=== PATIENT | male | born 1935 ===

== ENCOUNTER 2018-06-22 07:59 | Inpatient (IN) | payer MEDICARE, MEDICAID ==
[2018-06-22 08:49] VITALS: BMI 20.9
[2018-06-22] MEDS ORDERED: Bacitracin Ointment 30 GM TUBE ONE (08:58)
[2018-06-22] MEDS ORDERED: Sodium Chloride 0.9% 20 ML IV ONE (08:58)
[2018-06-22] MEDS ORDERED: Thrombin Topical 5,000 Int Units Spray Kit ONE (08:59)
[2018-06-22] MEDS ORDERED: GELATIN SPONGE,ABSORB/PORCINE 1 EACH SPONGE TP ONE (08:59)
[2018-06-22] MEDS ORDERED: Lactated Ringer's 1,000 ML IV ONE ×2 (10:10→12:00)
[2018-06-22 10:15] LABS: BASO % 0.5 % (0.0-2.0); EOS # 0.3 K/uL (0.0-0.7); EOS % 4.9 % (0.0-4.0); HEMOGLOBIN 11.9 g/dL (12.0-18.0); LYMPH # 2.6 K/uL (1.0-4.3); LYMPH % 48.6 % (20.0-40.0); MEAN CELL VOLUME 95.3 fl (80.0-94.0); MEAN CORPUSCULAR HEMOGLOBIN 31.5 pg (27.0-31.0); MEAN CORPUSCULAR HGB CONC 33.1 g/dL (33.0-37.0); MONO # 0.5 K/uL (0.0-0.8); MONO % 10.1 % (0.0-10.0); NEUT # 1.9 K/uL (1.8-7.0); NEUT % 35.9 % (50.0-75.0); NRBC % 0.2 % (0.0-0.0); RBC 3.79 Mil/uL (4.40-5.90); RED CELL DISTRIBUTION WIDTH 14.4 % (11.5-14.5); WHITE BLOOD COUNT 5.3 K/uL (4.8-10.8)
[2018-06-22] MEDS ORDERED: Propofol 10 mg/ml Inj (20 ML) ONE (10:15)
[2018-06-22] MEDS ORDERED: Rocuronium 10 mg/ml (5 ml) ONE (10:15)
[2018-06-22] MEDS ORDERED: Etomidate 20 mg/10ml Inj IV ONE (10:36)
[2018-06-22] MEDS ORDERED: Tranexamic Acid 1,000 MG in Sodium Chloride 0.9% 100 ML IVPB ONE (10:45)
[2018-06-22] MEDS: Bupivacaine HCl 0.5% PF (30 ml) Inj ONE ×2 (11:34→12:20)
[2018-06-22] MEDS: Morphine 1 mg/ml preservative-free Inj(Duramorph) ONE ×2 (11:34→12:20)
[2018-06-22] MEDS: EPINEPHrine 1 mg/ml (1:1000) Inj ONE ×2 (11:35→12:20)
[2018-06-22] MEDS ORDERED: Sevoflurane - Inhalation Anesthetic Liq (250 ml) ONE (11:57)
[2018-06-22] MEDS ORDERED: Neostigmine 1:1000 (1 mg/ml) Inj ONE (12:55)
[2018-06-22] MEDS ORDERED: HYDROmorphone 0.5 mg/0.5 ml ISec IVP PRN (13:29)
--- NOTE | 2018-06-22 14:14 | PCM.SURG1 ---
Surgeon's Initial Post Op Note - Surgeon's Notes Surgeon: Nader Marie MD Front Of House Manager: Julia Silver PA-C; DARIN Hearn Type of Anesthesia: General Endo Pre-Operative Diagnosis: left knee advanced osteoarthritis Operative Findings: see op report Post-Operative Diagnosis: same as pre-op dx Operation Performed: L TKR Specimen/Specimens Removed: left knee bone and soft tissue Estimated Blood Loss: EBL {In ML}: 25 Date of Surgery/Procedure: 06/22/18 Time of Surgery/Procedure: 11:30
--- NOTE | 2018-06-22 14:59 | CP.PCM.HP ---
History of Present Illness - History of Present Illness History of Present Illness: HPI: 83 YO male with PMHx of HIV, primary pulmonary HTN is admitted after L TKR. Pt is seen and examined after procedure. Hemodynamically stable, lethargic and sleepy. Sates that he just had knee surgery. Denies chest pain, dyspnea, nausea. VS: afebrile, HR 58, RR 18, BP 119/72, O2 100 PMD: Dr Zhang Surgeon: Dr. 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 Present on Admission - Present on Admission Any Indicators Present on Admission: No Review of Systems - Constitutional Constitutional: absent: Fever - Cardiovascular Cardiovascular: absent: Chest Pain, Palpitations - Respiratory Respiratory: absent: Dyspnea Past Patient History - Past Medical History & Family History Past Medical History?: Yes - Past Social History Smoking Status: Never Smoked Alcohol: None Drugs: Denies - CARDIAC Hx Cardiac Disorders: Yes Hx Angina: No Hx Cardia Arrhythmia: No Hx Circulatory Problems: No Hx Congestive Heart Failure: No Hx Heart Attack: No Hx Heart Murmur: No Hx Heart Transplant: No Hx Hypercholesterolemia: No Hx Hypertension: Yes Hx Hypotension: No Hx Internal Defibrillator: No Hx Mitral Valve Prolapse: No Hx Pacemaker: No Hx Peripheral Edema: No Hx Peripheral Vascular Disease: No - PULMONARY Hx Respiratory Disorders: Yes Hx Asthma: Yes Hx Emphysema: Yes Hx Pneumonia: Yes Other/Comment: pulmonary fibrosis - NEUROLOGICAL Hx Neurological Disorder: No - HEENT Hx HEENT Problems: No Hx Cataracts: Yes - RENAL Hx Chronic Kidney Disease: No - ENDOCRINE/METABOLIC Hx Endocrine Disorders: No - HEMATOLOGICAL/ONCOLOGICAL Hx Blood Disorders: Yes Hx AIDS: No Hx Human Immunodeficiency Virus (HIV): Yes - INTEGUMENTARY Hx Dermatological Problems: No - MUSCULOSKELETAL/RHEUMATOLOGICAL Hx Musculoskeletal Disorders: No Hx Arthritis: Yes Hx Back Pain: Yes Hx Degenerative Joint Disease: No Hx Falls: No Hx Fractures: No Hx Gout: No Hx Herniated Disk: No Hx Myasthenia Gravis: No Hx Osteoarthritis: No Hx Osteomyelitis: No Hx Osteoporosis: No Hx Rhabdomyolysis: No Hx Rheumatoid Arthritis: No Hx Spinal Stenosis: Yes - GASTROINTESTINAL Hx Gastrointestinal Disorders: Yes Hx Bowel Surgery: Yes (Hernia) Hx Colostomy: Yes - GENITOURINARY/GYNECOLOGICAL Hx Genitourinary Disorders: Yes Hx Prostate Problems: Yes - PSYCHIATRIC Hx Psychophysiologic Disorder: No Hx Substance Use: No - SURGICAL HISTORY Hx Surgeries: Yes Hx Cataract Extraction: Yes Hx Eye Surgery: Yes Hx Herniorrhaphy: Yes Other/Comment: UNKNOWN ABDOMINAL SURGERY - ANESTHESIA Hx Anesthesia: Yes Hx Anesthesia Reactions: No Hx Malignant Hyperthermia: No Meds Allergies/Adverse Reactions: Allergies Allergy/AdvReac Type Severity Reaction Status Date / Time No Known Allergies Allergy Verified 12/13/16 23:03 Physical Exam - Constitutional Appears: No Acute Distress - ENT Exam ENT Exam: Mucous Membranes Moist - Respiratory Exam Respiratory Exam: Clear to Auscultation Bilateral. absent: Wheezes - Cardiovascular Exam Cardiovascular Exam: REGULAR RHYTHM, +S1, +S2 - Extremities Exam Additional comments: L knee wound dressing - Neurological Exam Additional comments: Lethargic, sleepy Results - Vital Signs Recent Vital Signs: Last Vital Signs Temp 95.7 F L 06/22/18 14:20 Pulse 58 L 06/22/18 14:35 Resp 17 06/22/18 14:35 BP 125/58 L 06/22/18 14:35 Pulse Ox 100 06/22/18 14:35 - Labs Result Diagrams: 06/22/18 09:32 Labs: Laboratory Results - last 24 hr 06/22/18 06/22/18 06/22/18 09:32 09:32 11:28 WBC 5.3 D RBC 3.79 L Hgb 11.9 L Hct 36.1 MCV 95.3 H MCH 31.5 H MCHC 33.1 RDW 14.4 Plt Count 186 MPV 8.0 Neut % (Auto) 35.9 L Lymph % (Auto) 48.6 H [place] % (Auto) 10.1 H Eos % (Auto) 4.9 H Baso % (Auto) 0.5 Neut # (Auto) 1.9 Lymph # (Auto) 2.6 [place] # (Auto) 0.5 Eos # (Auto) 0.3 Baso # (Auto) 0.0 Blood Type A POSITIVE Blood Type Confirm A POSITIVE Antibody Screen Negative BBK History Checked No verified bt Assessment & Plan (1) HIV (human immunodeficiency virus infection) Status: Chronic (2) Osteoarthritis Status: Chronic (3) Total knee replacement status Status: Acute (4) Pulmonary hypertension Status: Chronic - Assessment and Plan (Free Text) Assessment: Assessment/Plan: 83 YO male with PMHx of HIV, primary pulmonary HTN is admitted after L TKR. -s/p L TKR, POD 0 -plan as ordered -ortho on board -pain management -bowel regimen -cont abx per ortho -VS stable -labs reviewed; chronic anemia -AM labs -PT
[2018-06-22] MEDS ORDERED: Patient's Own Med (Albuterol/Ipratropium [Combivent Respimat] 2 PUFF) IH SCH (17:00)
--- NOTE | 2018-06-22 18:28 | RAD ---
Date of service: 06/22/2018 PROCEDURE: Left Knee Radiographs. HISTORY: Pain. COMPARISON: Left knee radiographs 02/24/2018. FINDINGS: BONES: Patient status post left total knee replacement with distal femoral and proximal tibial prosthetic components in good apparent position. No acute fracture, subluxation or dislocation identified. Surgical drain identified in situ anteriorly at the superior knee soft tissues with skin dotty in place anteriorly as well. JOINTS: As above. JOINT EFFUSION: Postop change identified in the suprapatellar bursa as well as superficial and deep soft tissues anterior and lateral to the joint with minimal similar changes seen medially. OTHER FINDINGS: None. IMPRESSION: Status post left total knee replacement with postop changes as discussed above. No fracture subluxation or dislocation identified.
[2018-06-22] MEDS ORDERED: ceFAZolin 1 GM in Sodium Chloride 0.9% 100 ML IVPB ONE (18:30)
[2018-06-22] MEDS: Fluticasone-Salmeterol 250-50mcg Diskus IH SCH (21:15)
[2018-06-22] MEDS: oxyCODONE 10 mg ER Tab (oxyCONTIN) PO SCH (21:15)
[2018-06-22] MEDS: oxyCODONE 5 mg Immediate Release Tab PO PRN (23:39)
--- NOTE | 2018-06-23 00:31 | OP ---
Copied To: Nader Marie MD Attending MD: Nader Marie MD PROCEDURE DATE: 06/22/2018 ATTENDING PHYSICIAN: Nader Marie M.D. UI DEVELOPER DESIGNER: Julia Silver PA-C. PREOPERATIVE DIAGNOSIS: Left knee osteoarthritis. POSTOPERATIVE DIAGNOSIS: Left knee osteoarthritis. PROCEDURE: Left total knee replacement. IMPLANTS SIZE: [employer] size 5 tibial baseplate, size 4 femur, 11 mm polyethylene insert, 35 mm patella. ANESTHESIA TYPE: General. ESTIMATED BLOOD LOSS: 30 mL. SPECIMENS: None. COMPLICATIONS: None. HISTORY: The patient with prolonged history of left knee pain progressively getting worse despite extensive conservative management, which included activity modification, injections, anti-inflammatory modification and physical therapy. X-rays had revealed advanced arthritis. Patient was indicated for total knee replacement due to continued pain and limited mobility. I had a detailed discussion with the patient in the office explaining the nature of the surgery, alternatives of surgery, risks and benefits, rehabilitation protocol and surgical markings. Risks of surgery include but not limited to continued pain, lack of motion, infection, vascular injury, DVT / PE, nerve injury including peroneal nerve dysfunction, reflex sympathetic dystrophy, compartment syndrome, unforeseen medical and/or anesthesia complications, limb loss, and even . The patient expressed an understanding of the risks and possible benefits of the procedure, and is also aware of the alternatives to surgery. PROCEDURE: On the day of the surgery, the patient was admitted to pre-operative holding area. A laterality sheet was completed confirming the correct operative site. The correct surgical knee was marked in the holding area and informed consent was signed from the patient. Once again, I reviewed the risks and benefits of the surgery with the patient in detail. These risks include but are not limited to continued pain, lack of motion, infection, vascular injury, DVT / PE, nerve injury including peroneal nerve dysfunction, reflex sympathetic dystrophy, symptomatic hardware, need for further procedure and surgeries, instability, iatrogenic fractures, compartment syndrome, unforeseen medical and/or anesthesia complications, limb loss, and even . The patient expressed an understanding of the risks and possible benefits of the procedure, also aware of the alternatives to surgery and signed the informed consent. The patient was transported to the operating room and placed in the supine position, general anesthesia was obtained. Exam under anesthesia revealed flexion contracture of 20 degrees, flexion to 100, and also 15 degrees of valgus deformity. A padded tourniquet was applied to patient's operative thigh and appropriate prophylactic antibiotics were given. The operative leg was draped and prepped in standard sterile manner. Timeout was completed, confirming patient's left knee to be the correct operative site. Using an Esmarch, the extremity was exsanguinated and tourniquet was inflated to 350 mmHg. The surgical incision markings were made using patella border, tibial tubercle, patella and quadriceps tendon. Using a 10 blade, a midline incision was made. Skin dissection was taken until the prepatellar fascia was identified and the corners of the patellar tendon were marked for proper closure at the end of the procedure. Using a fresh 10 blade, a medial parapatellar arthrotomy was performed. The knee was exposed in the standard manner. The deep MCL was elevated for exposure, medial and lateral menisci were removed, ACL and PCL were also transected. The tibia was subluxed anteriorly. Planned tibial cut was made with power saw, using extra-medullary guide, perpendicular to mechanical axis of the tibia. After the cut was made, the alignment was also checked and was found to be appropriate. Tibial cut surface was measured with trial base plate and it was noted that tibial baseplate size 5 was provide sufficient coverage without overhang. Tibial component was externally rotated and marked. Next, the knee was placed into 90 degrees of flexion. A drill hole was made within the femoral notch anterior to PCL insertion for placement of intramedullary femoral osman. Intramedullary femoral osman was inserted within the femoral canal and planned distal femoral cut was made. After the cut, knee was brought into full extension. Spacer blocks were used to check the extension balancing both in full extension and 30 degrees of flexion. It was found that an 11 mm trial spacer block allowed full extension with symmetric varus and valgus balancing. Next we proceed with Patella resurfacing. Patella width was found to be 29 mm. Using the free-hand technique, the arthritic patella surface was resected. Patella was sized using the guide and it was noted that 35 mm patella dome button would be appropriate for the patient. Next the size of femoral component was determined using the posterior referencing guide. It was noted that a size 4 femur would be appropriate for this patient without causing any significant notching. A 4 x 1 cutting block was placed and flexion gap balancing was checked. The flexion gap was found to be symmetric to the extension gap. Anterior and posterior condyle, anterior and posterior chamfer cuts were made. Next, appropriate size box cut for femoral component was prepared using the guide. The femoral trial component was impacted onto the distal femur. Appropriate size tibial trial component was also placed on the cut surface of the tibia. Using the drill and punch, keel for tibial implant was prepared. Trial tibial tray was secured onto the tibia using pins. Different size trial polyethylene inserts were secured on to the trial tibial tray to critically assess the following parameters: Full range of motion, extension and flexion gap balancing, mid-flexion stability, anterior and posterior drawer, and patellar tracking. All parameter were found to be satisfactory with an 11 mm insert. All the trial components were removed. Implants were opened on the back table. Cement was mixed and we proceed with cement fixation of the implants. Tibial tray, femoral component and patellar dome button were secured with cement. Polyethylene insert was secured onto the tibial tray using locking mechanism. The knee was reduced and brought into full extension. Cement was allowed to harden until final component fixation. Knee was taken through the final range of motion for stability testing, and found to be satisfactory. A 60 cc of custom cocktail mixture was injected into posterior capsule, MCL, LCL, quadriceps tendon, and patellar tendon. Wound was copiously irrigated with sterile antibiotic solution using pulse lavage. Arthrotomy was closed using heavy suture and wound was closed in standard manner. Patient was extubated, transferred to stretcher and taken to the recovery room. Post-operative instructions were provided, physical therapy consult was requested along with DVT prophylaxis and appropriate pain medications. During this procedure, I was assisted by Dr. Julia Silver, who assisted in positioning the patient on the operating room table as well as transferring the patient from the operating room table to the recovery room stretcher. In addition, Dr. Julia Silver assisted me during the actual operative procedure by positioning, protecting critical neurovascular structures, exposure of the joint, and proper positioning of the implants. The presence of Dr. Julia Silver as my operative assistant terminal manager was medically necessary to ensure the utmost safety of the patient in the pre, intra-, and post-operative periods. Nader Marie MD
[2018-06-23] MEDS ORDERED: ceFAZolin 1 GM in Sodium Chloride 0.9% 100 ML IVPB ONE (02:30)
[2018-06-23 06:29] LABS: BASO % 0.3 % (0.0-2.0); EOS # 0.3 K/uL (0.0-0.7); EOS % 3.9 % (0.0-4.0); HEMOGLOBIN 9.8 g/dL (12.0-18.0); LYMPH # 1.6 K/uL (1.0-4.3); LYMPH % 22.1 % (20.0-40.0); MEAN CELL VOLUME 95.5 fl (80.0-94.0); MEAN CORPUSCULAR HEMOGLOBIN 31.9 pg (27.0-31.0); MEAN CORPUSCULAR HGB CONC 33.4 g/dL (33.0-37.0); MEAN PLATELET VOLUME 8.4 fl (7.2-11.7); MONO # 0.7 K/uL (0.0-0.8); MONO % 9.1 % (0.0-10.0); NEUT # 4.7 K/uL (1.8-7.0); NEUT % 64.6 % (50.0-75.0); RBC 3.06 Mil/uL (4.40-5.90); RED CELL DISTRIBUTION WIDTH 14.2 % (11.5-14.5); WHITE BLOOD COUNT 7.2 K/uL (4.8-10.8)
[2018-06-23 07:00] LABS: BLOOD UREA NITROGEN 16 mg/dl (9-20); CALCIUM 8.3 mg/dL (8.4-10.2); GFR AFRICAN-AMERICAN > 60; GFR NON-AFRICAN AMERICAN > 60
[2018-06-23] MEDS: oxyCODONE 5 mg Immediate Release Tab PO PRN ×2 (07:47→12:53)
[2018-06-23] MEDS: oxyCODONE 10 mg ER Tab (oxyCONTIN) PO SCH ×2 (08:38→21:24)
[2018-06-23] MEDS: Fluticasone-Salmeterol 250-50mcg Diskus IH SCH ×2 (08:52→21:18)
--- NOTE | 2018-06-23 08:57 | CP.PCM.PN ---
Subjective - Date & Time of Evaluation Date of Evaluation: 06/23/18 Time of Evaluation: 08:15 - Subjective Subjective: 83 yo M s/p LTKR POD#1 Pt seen and examined at bedside, comfortable in bed Pt c/o left knee pain and LLE discomfort Pt denies any SOB, chest pain, N/V/D, numbness/tingling LLE Objective - Vital Signs/Intake and Output Vital Signs (last 24 hours): Temp Pulse Resp BP Pulse Ox 98.5 F 78 19 95/61 L 93 L 06/23/18 07:46 06/23/18 07:46 06/23/18 07:46 06/23/18 07:46 06/23/18 07:46 - Medications Medications: Current Medications Acetaminophen (Tylenol 325mg Tab) 325 mg PO Q4 PRN PRN Reason: pain1-3 Celecoxib (Celebrex) 100 mg PO Q12 [facility] Last Admin: 06/23/18 08:52 Dose: 100 mg Citalopram Hydrobromide (Celexa) 20 mg PO DAILY [facility] Docusate Sodium (Colace) 100 mg PO TID [facility] Last Admin: 06/23/18 08:52 Dose: 100 mg Enoxaparin Sodium (Lovenox) 40 mg SC DAILY [facility] PRN Reason: Protocol Home Med (Albuterol/Ipratropium [Combivent Respimat]) 2 puff IH BID [facility] Home Med (Patient's Own Medication) 50 unit PO DAILY [facility] Ketorolac Tromethamine (Toradol) 15 mg IM Q8 [facility] Stop: 06/24/18 19:00 Last Admin: 06/23/18 08:48 Dose: 15 mg Montelukast Sodium (Singulair) 10 mg PO DAILY [facility] Ondansetron HCl (Zofran Inj) 4 mg IVP Q6 PRN PRN Reason: Nausea/Vomiting Last Admin: 06/22/18 17:59 Dose: 4 mg Oxycodone HCl (Oxycontin Extended Release Tab) 10 mg PO Q12 [facility] Stop: 07/06/18 21:01 Last Admin: 06/23/18 08:38 Dose: 10 mg Oxycodone HCl (Oxycodone Immediate Release Tab) 5 mg PO Q4 PRN PRN Reason: pain4-7 Last Admin: 06/23/18 07:47 Dose: 5 mg Fluticasone/Salmeterol (Advair Diskus 250/50) 1 puff IH Q12 [facility] Last Admin: 06/23/18 08:52 Dose: 1 puff - Labs Labs: 06/23/18 05:25 06/23/18 05:25 - Constitutional Appears: Well, No Acute Distress - Respiratory Exam Respiratory Exam: Clear to Ausculation Bilateral, NORMAL BREATHING PATTERN - Cardiovascular Exam Cardiovascular Exam: REGULAR RHYTHM, RRR - Back Exam Additional comments: LLE: Knee dressing C/D/I, Picco dressing in place and functioning well Calves soft and nontender b/l N/V intact distally Normal ROM left ankle Distal pulses wnl No foot drop Assessment and Plan - Assessment and Plan (Free Text) Assessment: 83 yo M s/p LTKR POD#1 Plan: Pain control Incentive Spirometer DVT ppx- start lovenox today, SCD b/l LE PT/OT WBAT LLE F/U labs Discussed with Dr. Marie
[2018-06-23] MEDS: Enoxaparin 40 mg Syringe SC SCH (12:55)
--- NOTE | 2018-06-23 17:14 | CP.PCM.PN ---
Subjective - Date & Time of Evaluation Date of Evaluation: 06/23/18 Time of Evaluation: 10:00 - Subjective Subjective: Pt seen and evaluate at bedside with Dr. Isbell this am. S/p Sitting comfortably in chair, LLE in immobilizer. No acute events overnight, no chest pain, dyspnea. Objective - Vital Signs/Intake and Output Vital Signs (last 24 hours): Temp Pulse Resp BP Pulse Ox 98.2 F 56 L 18 93/61 L 95 06/23/18 16:09 06/23/18 16:09 06/23/18 16:09 06/23/18 16:09 06/23/18 16:09 - Medications Medications: Current Medications Acetaminophen (Tylenol 325mg Tab) 325 mg PO Q4 PRN PRN Reason: pain1-3 Celecoxib (Celebrex) 100 mg PO Q12 [facility] Last Admin: 06/23/18 08:52 Dose: 100 mg Citalopram Hydrobromide (Celexa) 20 mg PO DAILY [facility] Last Admin: 06/23/18 08:56 Dose: 20 mg Docusate Sodium (Colace) 100 mg PO TID [facility] Last Admin: 06/23/18 16:30 Dose: 100 mg Enoxaparin Sodium (Lovenox) 40 mg SC DAILY [facility] PRN Reason: Protocol Last Admin: 06/23/18 12:55 Dose: 40 mg Home Med (Albuterol/Ipratropium [Combivent Respimat]) 2 puff IH BID [facility] Home Med (Patient's Own Medication) 50 unit PO DAILY [facility] Ketorolac Tromethamine (Toradol) 15 mg IVP Q8 [facility] Stop: 06/24/18 19:00 Last Admin: 06/23/18 16:31 Dose: 15 mg Montelukast Sodium (Singulair) 10 mg PO DAILY [facility] Last Admin: 06/23/18 12:54 Dose: 10 mg Ondansetron HCl (Zofran Inj) 4 mg IVP Q6 PRN PRN Reason: Nausea/Vomiting Last Admin: 06/22/18 17:59 Dose: 4 mg Oxycodone HCl (Oxycontin Extended Release Tab) 10 mg PO Q12 [facility] Stop: 07/06/18 21:01 Last Admin: 06/23/18 08:38 Dose: 10 mg Oxycodone HCl (Oxycodone Immediate Release Tab) 5 mg PO Q4 PRN PRN Reason: pain4-7 Last Admin: 06/23/18 12:53 Dose: 5 mg Fluticasone/Salmeterol (Advair Diskus 250/50) 1 puff IH Q12 [facility] Last Admin: 06/23/18 08:52 Dose: 1 puff - Labs Labs: 06/23/18 05:25 06/23/18 05:25 - Constitutional Appears: No Acute Distress - Eye Exam Eye Exam: Normal appearance - ENT Exam ENT Exam: Mucous Membranes Moist - Respiratory Exam Respiratory Exam: Clear to Ausculation Bilateral, NORMAL BREATHING PATTERN - Cardiovascular Exam Cardiovascular Exam: REGULAR RHYTHM, +S1, +S2 - GI/Abdominal Exam GI & Abdominal Exam: Soft. absent: Tenderness - Extremities Exam Additional comments: LLE in bandage and immobilizer - Neurological Exam Neurological Exam: Alert, Awake, Oriented x3 - Skin Skin Exam: Dry, Normal Color, Warm Assessment and Plan (1) Total knee replacement status Status: Acute (2) HIV (human immunodeficiency virus infection) Status: Chronic - Assessment and Plan (Free Text) Plan: - s/p L TKR, POD 1 - ortho on board; primary management of TKR as per ortho - pain meds, abx, DVT prophylaxis - c/w HAART as home meds - PT/OT - rest of plan as ordered
[2018-06-23 23:58] VITALS: RESP 20; O2SAT 94
[2018-06-24 06:49] LABS: BASO % 0.1 % (0.0-2.0); EOS # 0.3 K/uL (0.0-0.7); EOS % 3.5 % (0.0-4.0); HEMOGLOBIN 9.2 g/dL (12.0-18.0); LYMPH # 1.9 K/uL (1.0-4.3); LYMPH % 24.5 % (20.0-40.0); MEAN CELL VOLUME 94.9 fl (80.0-94.0); MEAN CORPUSCULAR HGB CONC 33.7 g/dL (33.0-37.0); MEAN PLATELET VOLUME 8.1 fl (7.2-11.7); MONO % 12.4 % (0.0-10.0); NEUT # 4.6 K/uL (1.8-7.0); NEUT % 59.5 % (50.0-75.0); NRBC % 0.1 % (0.0-0.0); RBC 2.89 Mil/uL (4.40-5.90); RED CELL DISTRIBUTION WIDTH 14.4 % (11.5-14.5); WHITE BLOOD COUNT 7.7 K/uL (4.8-10.8)
[2018-06-24 07:23] LABS: BLOOD UREA NITROGEN 24 mg/dl (9-20); CALCIUM 8.3 mg/dL (8.4-10.2); GFR AFRICAN-AMERICAN > 60; GFR NON-AFRICAN AMERICAN > 60
[2018-06-24 08:14] VITALS: BP 109/62; TEMP 97.9
[2018-06-24] MEDS: Fluticasone-Salmeterol 250-50mcg Diskus IH SCH (08:21)
[2018-06-24] MEDS: Enoxaparin 40 mg Syringe SC SCH (08:23)
[2018-06-24] MEDS: oxyCODONE 10 mg ER Tab (oxyCONTIN) PO SCH (08:27)
[2018-06-24] MEDS ORDERED: BIKTARVY PO SCH (09:00)
--- NOTE | 2018-06-24 09:16 | CP.PCM.PN ---
Subjective - Date & Time of Evaluation Date of Evaluation: 06/24/18 Time of Evaluation: 09:13 - Subjective Subjective: Patient seen and examined at bedside. Pain moderate today but controlled with medications. No new complaints. Objective - Vital Signs/Intake and Output Vital Signs (last 24 hours): Temp Pulse Resp BP Pulse Ox 97.9 F 78 20 109/62 94 L 06/24/18 08:13 06/24/18 08:13 06/24/18 08:13 06/24/18 08:13 06/24/18 08:13 - Medications Medications: Current Medications Acetaminophen (Tylenol 325mg Tab) 325 mg PO Q4 PRN PRN Reason: pain1-3 Celecoxib (Celebrex) 100 mg PO Q12 [facility] Last Admin: 06/24/18 08:22 Dose: 100 mg Citalopram Hydrobromide (Celexa) 20 mg PO DAILY [facility] Last Admin: 06/24/18 08:22 Dose: 20 mg Docusate Sodium (Colace) 100 mg PO TID [facility] Last Admin: 06/24/18 08:22 Dose: 100 mg Enoxaparin Sodium (Lovenox) 40 mg SC DAILY [facility] PRN Reason: Protocol Last Admin: 06/24/18 08:23 Dose: 40 mg Home Med (Albuterol/Ipratropium [Combivent Respimat]) 2 puff IH BID [facility] Home Med (Patient's Own Medication) 50 unit PO DAILY [facility] Ketorolac Tromethamine (Toradol) 15 mg IVP Q8 [facility] Stop: 06/24/18 19:00 Last Admin: 06/24/18 08:24 Dose: 15 mg Montelukast Sodium (Singulair) 10 mg PO DAILY [facility] Last Admin: 06/24/18 08:23 Dose: 10 mg Ondansetron HCl (Zofran Inj) 4 mg IVP Q6 PRN PRN Reason: Nausea/Vomiting Last Admin: 06/22/18 17:59 Dose: 4 mg Oxycodone HCl (Oxycontin Extended Release Tab) 10 mg PO Q12 [facility] Stop: 07/06/18 21:01 Last Admin: 06/24/18 08:27 Dose: 10 mg Oxycodone HCl (Oxycodone Immediate Release Tab) 5 mg PO Q4 PRN PRN Reason: pain4-7 Last Admin: 06/23/18 12:53 Dose: 5 mg Fluticasone/Salmeterol (Advair Diskus 250/50) 1 puff IH Q12 [facility] Last Admin: 06/24/18 08:21 Dose: 1 puff - Labs Labs: 06/24/18 06:20 06/24/18 06:20 - Extremities Exam Additional comments: L knee: Dressings CDI, FROYLAN intact with mild dry bloody drainage, FROYLAN removed revealing wound CDI with dotty sensation intact SP/DP/TN motor intact EHL/FHL/TA/G pedal pulse intact comps soft NT Assessment and Plan (1) Osteoarthritis of left knee Assessment & Plan: POD #2 s/p L TKA -pain control -PT/OT WBAT -FROYLAN changed this AM, may remove POD#7 -DVT ppx, ASA 325 BID x 2 weeks -f/u in office within 7 days -orthopedically stable for d/c to rehab -above d/w Dr. Marie in agreement Status: Acute
[2018-06-24] MEDS: Albuterol-Ipratrop 3 mg / 0.5 (3 ml) UD INH SCH ×2 (09:41→12:47)
[2018-06-24 09:46] VITALS: PULSE 82
--- NOTE | 2018-06-24 13:54 | CP.PCM.DIS ---
Provider - Provider Date of Admission: 06/22/18 13:29 Attending physician: Robin Isbell MD Primary care physician: Jese Zhang MD Consults: Elizabeth Marie Time Spent in preparation of Discharge (in minutes): 30 Diagnosis - Discharge Diagnosis (1) Total knee replacement status Status: Acute (2) HIV (human immunodeficiency virus infection) Status: Chronic Hospital Course - Lab Results Lab Results: Most Recent Lab Values WBC 7.7 K/uL (4.8-10.8) 06/24/18 06:20 RBC 2.89 Mil/uL (4.40-5.90) L 06/24/18 06:20 Hgb 9.2 g/dL (12.0-18.0) L 06/24/18 06:20 Hct 27.4 % (35.0-51.0) L 06/24/18 06:20 MCV 94.9 fl (80.0-94.0) H 06/24/18 06:20 MCH 32.0 pg (27.0-31.0) H 06/24/18 06:20 MCHC 33.7 g/dL (33.0-37.0) 06/24/18 06:20 RDW 14.4 % (11.5-14.5) 06/24/18 06:20 Plt Count 145 K/uL (130-400) 06/24/18 06:20 MPV 8.1 fl (7.2-11.7) 06/24/18 06:20 Neut % (Auto) 59.5 % (50.0-75.0) 06/24/18 06:20 Lymph % (Auto) 24.5 % (20.0-40.0) 06/24/18 06:20 [place] % (Auto) 12.4 % (0.0-10.0) H 06/24/18 06:20 Eos % (Auto) 3.5 % (0.0-4.0) 06/24/18 06:20 Baso % (Auto) 0.1 % (0.0-2.0) 06/24/18 06:20 Neut # (Auto) 4.6 K/uL (1.8-7.0) 06/24/18 06:20 Lymph # (Auto) 1.9 K/uL (1.0-4.3) 06/24/18 06:20 [place] # (Auto) 1.0 K/uL (0.0-0.8) H 06/24/18 06:20 Eos # (Auto) 0.3 K/uL (0.0-0.7) 06/24/18 06:20 Baso # (Auto) 0.0 K/uL (0.0-0.2) 06/24/18 06:20 Sodium 136 mmol/l (132-148) 06/24/18 06:20 Potassium 5.2 MMOL/L (3.6-5.0) H 06/24/18 06:20 Chloride 100 mmol/L (98-107) 06/24/18 06:20 Carbon Dioxide 30 mmol/L (22-30) 06/24/18 06:20 Anion Gap 11 (10-20) 06/24/18 06:20 BUN 24 mg/dl (9-20) H 06/24/18 06:20 Creatinine 0.9 mg/dl (0.8-1.5) 06/24/18 06:20 Est GFR ( Amer) > 60 06/24/18 06:20 Est GFR (Non-Af Amer) > 60 06/24/18 06:20 Random Glucose 105 mg/dL (75-110) 06/24/18 06:20 Calcium 8.3 mg/dL (8.4-10.2) L 06/24/18 06:20 Blood Type A POSITIVE 06/22/18 09:32 Blood Type Confirm A POSITIVE 06/22/18 11:28 Antibody Screen Negative 06/22/18 09:32 BBK History Checked No verified bt 06/22/18 09:32 - Hospital Course Hospital Course: 83 yo M with hx HIV and pulmonary HTN was admitted s/p LEFT total knee replacement by Dr. Marie; POD 2. Pt did well on medical floors and is now stable from ortho standpoint to be discharged to rehab facility for continued therapy. Discharge Exam - Head Exam Head Exam: NORMOCEPHALIC - Eye Exam Eye Exam: Normal appearance - ENT Exam ENT Exam: Mucous Membranes Moist - Respiratory Exam Respiratory Exam: NORMAL BREATHING PATTERN, UNREMARKABLE - Cardiovascular Exam Cardiovascular Exam: REGULAR RHYTHM - GI/Abdominal Exam GI & Abdominal Exam: Normal Bowel Sounds, Soft - Extremities Exam Additional comments: LLE in dressing otherwise unremarkable - Neurological Exam Neurological exam: Alert, Oriented x3 - Psychiatric Exam Psychiatric exam: Normal Affect, Normal Mood Discharge Plan - Follow Up Plan Condition: GOOD Disposition: HOME/ ROUTINE Instructions: Total Knee Replacement (DC) Additional Instructions: f/u with PMD after d/c from rehab f/u with ortho office in 7 days Referrals: Jese Zhang MD [Primary Care Provider] - Nader Marie MD [Staff Provider] -
== END 2018-06-24 15:33 | DRG 470 ==
LOC: H.OPSURG 07:59 → H.MEDSURG1 13:29
PROVIDERS: ADMIT Family Medicine; ATTEND Family Medicine
PROC: 0SRD0J9 Replacement of Left Knee Joint with Synthetic Substitute, Cemented, Open Approach (ICD-10-PCS; principal; 2018-06-22 11:45)
DX: M17.12 Unilateral primary osteoarthritis, left knee (principal); I27.0 Primary pulmonary hypertension; D64.9 Anemia, unspecified; Z21 Asymptomatic human immunodeficiency virus [HIV] infection status; J84.112 Idiopathic pulmonary fibrosis; J43.9 Emphysema, unspecified; N40.2 Nodular prostate without lower urinary tract symptoms